=== PATIENT | male | born 1955 | race African-American/Black ===

== ENCOUNTER 2023-06-05 17:10 | Emergency (ER) | payer OTHER ==
--- OUTSIDE RECORDS SUMMARY | 2023-06-05 17:12 | XMS REPORT | Continuity of Care Document ---
:1955 Author Organization [facility] t Address [address] [place] [address] Care Team Providers Name Role Phone Apollo Broussard Primary Care Physician Jolie Tony DO Attending Clinician JOLIE TONY Attending Clinician Unavailable WINDY VALDES Attending Clinician Unavailable Isabela Washington Attending Clinician Unavailable Maria G Bhat Attending Clinician Unavailable WINDY VALDES Admitting Clinician Unavailable Maria G Bhat Admitting Clinician Unavailable UNDEFINED Admitting Clinician Unavailable Payers Payer Name Policy Type Policy Number Effective Date Expiration Date S ource Problems This patient has no known problems. Allergies, Adverse Reactions, Alerts Allergy Allergy Status Severity Reaction(s) Onset Inactive Treating Comm ents Source Name Type Date Date Clinician TRAMADOL DRUG Active ITCHING Univers INGREDI 06-02 ity of 00:00: [place] 00 Medical Branch Tramadol Propensi Active Itching Unive rs ty to 06-02 ity of adverse 00:00: [place] reaction 00 Medical Branch clopidog DA Active SV ITCHING [facility] rel 8-23 [place] 00:00: Health [address] [facility] NO KNOWN Drug Active Univers ALLERGIE Class ity of [facility] Social History Social Habit Start Date Stop Date Quantity Comments Source Gender identity [facility] Sexual orientation [facility] Sex Assigned At [birth year] Uni [facility]ity of [place] 00:00:00 00:00:00 Medical Branch Smoking Status Start Date Stop Date Source Tobacco smoking consumption [facility] Medications Ordered Filled Start Stop Current Ordering Indication Dosage Frequency Signature Comments Components Source Medication Medication Date Date Medication? Clinician (SIG) Name Name ibuprofen 600mg 600 mg, Uni vers (IBU) 06-02 Oral, ity of tablet 600 14:00: 14:10 ONCE, 1 Manan as mg 00 :00 dose, On Medical Sat Branch 06/02/23 at 0900, SARAHY methocarbam 2021-11 Yes [id number] 500mg Take 1 Univers oL 500 mg [id number] tablet by ity of tablet 00:00: mouth 4 [place] 00 (four) Medical times Branch daily as needed for Pain (scale 7-10). Vital Signs Vital Name Observation Time Observation Value Comments Source Systolic blood 2023-06-02 13:49:00 139 mm[Hg[facility] Diastolic blood 2023-06-02 13:49:00 81 mm[Hg] [facility] Heart rate 2023-06-02 13:49:00 52 /min [facility] Body temperature 2023-06-02 13:49:00 36.72 Preeti [facility] Respiratory rate 2023-06-02 13:49:00 16 /min [facility] Body height 2023-06-02 13:49:00 172.7 cm [facility] Body weight 2023-06-02 13:49:00 102.059 kg [facility] BMI 2023-06-02 13:49:00 34.21 kg/m2 [facility] Oxygen saturation in 2023-06-02 13:49:00 98 /min [facility] Arterial blood by [facility] Pulse oximetry Branch Procedures Procedure Date / Time Performed Performing Clinician Kamryn e ASSIGNMENT OF BENEFITS 2023-06-02 14:26:30 Doctor Unassigned, No [facility] Medical Branch CONSENT/REFUSAL FOR 2023-06-02 13:46:14 Doctor Unassigned, No [facility] DIAGNOSIS AND Name Medical Branch TREATMENT [id number] 2022-07-04 00:00:00 [email or web address] [facility] [id number] 2022-07-04 00:00:00 WEAMA.02 [facility] Encounters Start End Encounter Admission Attending Care Care Encounter Source Date/Time Date/Time Type Type Clinicians Facility Department ID 2023-06-02 2023-06-02 Emergency [facility] [id number] Univers 08:51:00 11:25:00 [id number] [id number] [address] 2023-06-02 2023-06-02 Emergency [facility] ERT [id number] Univers 08:51:00 11:25:00 JOLIE [facility] 2022-08-06 2022-08-06 Emergency [facility] [id number] Univers 10:57:00 12:49:00 WINDY [facility] 2022-07-04 2022-07-06 Inpatient SEKOU [place] [facility] MEDI.01 [id number] [facility] 05:50:00 18:59:00 Isabela 03 [facility] 2022-07-04 2022-07-04 Outpatient Maria G Bhat [facility] REF [id number] [facility] 15:19:00 15:19:00 26 [facility] 2022-06-27 2022-06-27 Outpatient Maria G Nation [facility] 3DAY [id number] [facility] 00:00:00 23:59:00 83 [facility] Results Test Description Test Time Test Comments Results Result Comments Source GLUBED 2022-07-11 12:40:00 Test Item Value Reference Range Interpretation Comme nts GLUBED (test code = GLUBED) 147 MG/DL 70-105 H [id number] 15:44:00 Test Item Value Reference Range Interpretation Comments SURGICAL (test code = SR) RUN DATE: 07/07/22 [facility] - LAB PAGE 1 RUN TIME: 1544 Specimen Inquiry RUN USER: INTERFACE YNES ENT: CH[facility] CHRISTIANSON LOC: [facility] POD B U #: [id number] AGE/SX: 67/M ROOM: [facility] RE07/04/22REG DR: Maria G Bhat MD : 53 BED: 1 DIS: 07/06/22 STATUS: DIS IN TLOC: SPEC #: [id number] RECD: 07/04/22 STATUS: SOUT REQ #: [id number] CORTEZ: 07/04/22 [facility] [address]: Maria G Bhat MD ENTERED: 07/04/22 SP TYPE: SURGICAL OTHR DR: Lizz Provider ORDERED: [id number], ANATOMIC SPEC HISTOLOGY: TISSUE ID BLK PCS DHARMESH LEV / PROCEDURE DISPOSITION ____ ___ ___ ___ ___ COLSRT A 25 1 TISSUES: A. 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 - Negative for invasive carcinoma. - Adjacent mural tattoo. - Terminal ileum and appendix with no histopathologic alteration. - Thirty-one reactive lymph nodes; negative for metastatic carcinoma (0/31). - Resection margins are negative for adenomatous changes and malignancy. - AJCC Pathologic Stage: pTis N0. Comment: The clinical definition of CRC excludes lesions with high-grade dysplasia/intramucosal carcinoma where dysplastic/neoplastic changes are solely confined to theepithelium, lamina propria, or muscularis mucosa. Such lesions are classified as "Tis" inthe AJCC staging system and NCCN guidelines. GROSS DESCRIPTION Received in formalin, labeled with the patient's name, date of and designatedspecimen A "right colon and lymph nodes". It consists of a segment of large bowel withattached small bowel. The large bowel measures 23 cm in total length with the attachedsmall bowel measuring 4 cm in total length. The serosa appears kaiser and rough with minoradhesions. The specimen has 15 cm of fatty tissue extending past the serosa. There is atattooed area, located approximately where at the cecum. There is a 1.8 x 1.8 cmtransmural defect. There is an attached appendix measuring 11 cm in total length with anaverage diameter of 0.5 cm. The specimen is opened longitudinally, revealing a friablebrown fungating mass measuring 5 x 3 x 1.5 cm, located 5 cm from the proximal margin, 20 cmfrom distal margin, and 10.5 cm from the mesenteric margin. The large bowel has an averagecircumference of 7.4 cm whearas the small bowel has a circumference average of 4 cm. Thespecimen is sectioned and the mass does not appear invasive. The appendix is revealed tohave a pin point lumen. The uninvolved mucosa shows no additional lesions or masses. Thespecimen is sectioned and submitted representatively as follows: A1 - proximal margin; A2 -distal margin; A3 - mesenteric margin; A4 to A18 - tumor submitted entirely with a sectionfrom the tattooed area in cassette in A10; A19 - ileocecal valve; A20 - appendix; A21 toA24 - six lymph node candidates, each; A25 - eight lymph node candidates. CONTINUED ON NEXT PAGE RUN DATE: 07/07/22 [facility] - LAB PAGE 2 RUN TIME: 1544 Specimen Inquiry RUN USER: INTERFACE SPEC #: [id number] PATIENT: [facility] CHRISTIANSON #[id number] (Continued) ------- GROSS DESCRIPTION (Continued) SULLY/vale Technical component performed at [facility] [facility], [facility], [address] Immunohistochemistry: This test was developed and its performancecharacteristics determined by this laboratory. It has not been approved nordoes it need approval by the [place] FDA. Appropriate positive and negative controlsare reviewed and judged to be acceptable. This laboratory is certified underthe Clinical Laboratory Improvement Amendments (CLIA-88) as qualified toperform high complexity clinical laboratory testing. MICROSCOPIC DESCRIPTION Unless gross only, the diagnosis is based upon microscopic examination. CLINICAL INFORMATION Cecal Mass Signed SIGNATURE ON FILE Jose Luis Maher 07/07/22 1544 END OF REPORT [id number] 17:14:00 Test Item Value Reference Range Interpretation Comments GLUBED (test code = GLUBED) 127 MG/DL 70-105 H [id number] 11:18:00 Test Item Value Reference Range Interpretation Comments GLUBED (test code = GLUBED) 136 MG/DL 70-105 H [id number] 07:31:00 Test Item Value Reference Range Interpretation Comments GLUBED (test code = GLUBED) 106 MG/DL 70-105 H BASIC METABOLIC [id number] 06:35:00 Test Item Value Reference Range Interpretation Comments SODIUM (test code 141 mmol/L 136-145 N Please not e: New = NA) Reference Range Dec 2020 POTASSIUM (test 3.9 mmol/L 3.5-5.1 N code = K) CHLORIDE (test 112 mmol/L 98-107 H Please note: New code = CL) Reference Range Dec 2020 CARBON DIOXIDE 23 mmol/L 20-31 N Please note: New (test code = CO2) Reference Range Dec 2020 GLUCOSE (test code 91 mg/dL 74-106 N Please no te: New = GLU) Reference Range Dec 2020 BLOOD UREA 6 mg/dL 9-23 L Please note: Ne w NITROGEN (test Reference Ran ge Feb code = BUN) 2020 GLOMERULAR >=60 max >60 Units are FILTRATION RATE estimate mL/min mL/min/1. 73m2 The (test code = GFR) estimated glomerular filtration rate is computed usingpatient ra ce, age (>18), sex, and serum creatinin e. If anyof the neede d data elements a re missing the Laboratory juventino ot compute an estimation of t he glomerular filtration rate . CREATININE (test 0.80 mg/dL 0.70-1.30 N Please note : New code = CREAT) Reference Rang e Dec 2020 CALCIUM (test code 8.2 mg/dL 8.7-10.4 L Please no te: New = CA) Reference Range Dec 2020 [id number] 06:35:00 Test Item Value Reference Range Interpretation Comments MAGNESIUM (test code = 2.1 mg/dL 1.6-2.6 N Pleas e note: New MAG) Reference Range Dec 2020 CBC W/MANUAL [id number] 06:25:00 Test Item Value Reference Range Interpretation Comments WHITE BLOOD CELL (test code = 6.0 x10 3/uL 4.8-10.8 N WBC) RED BLOOD CELL (test code = 4.53 x10 6/uL 4.70-6.10 L RBC) HEMOGLOBIN (test code = HGB) 11.0 g/dL 14.0-18.0 L HEMATOCRIT (test code = HCT) 33.4 % 42.0-52.0 L MEAN CELL VOLUME (test code = 73.7 fL 80.0-94.0 L MCV) MEAN CELL HGB (test code = MCH) 24.3 pg 27-31 L MEAN CELL HGB CONCENTRATION 32.9 G/DL 33-36.5 L (test code = MCHC) RED CELL DISTRIBUTION WIDTH 16.2 % 12.9-16.9 N (test code = RDW) PLATELET COUNT (test code = 187 x10 3/uL 150-440 N PLT) MEAN PLATELET VOLUME (test code 9.0 fL 8.9-12.4 N = MPV) NEUTROPHIL % (test code = NT%) 59.7 % 42.2-75.2 N LYMPHOCYTE % (test code = LY%) 26.7 % 20.5-51.1 N MONOCYTE % (test code = MO%) 11.4 % 1.7-9.3 H EOSINOPHIL % (test code = EO%) 1.7 % 0.0-7.0 N BASOPHIL % (test code = BA%) 0.3 % 0-2.5 N NEUTROPHIL # (test code = NT#) 3.55 x10 3/uL 1.80-7.70 N LYMPHOCYTE # (test code = LY#) 1.59 x10 3/uL 1.00-4.80 N MONOCYTE # (test code = MO#) 0.68 x10 3/uL 0.00-0.80 N EOSINOPHIL # (test code = EO#) 0.10 x10 3/uL 0.00-0.45 N BASOPHIL # (test code = BA#) 0.02 x10 3/uL 0.0-0.20 N TOTAL CELLS COUNTED (test code 100 #CELLS = TCC) SEGMENTED NEUTROPHILS (test % 49-71 code = SEG) LYMPHOCYTE (test code = LYMPH) % 20-40 [id number] 16:29:00 Test Item Value Reference Range Interpretation Comments GLUBED (test code = GLUBED) 140 MG/DL 70-105 H [id number] 11:29:00 Test Item Value Reference Range Interpretation Comments GLUBED (test code = GLUBED) 110 MG/DL 70-105 H [id number] 07:24:00 Test Item Value Reference Range Interpretation Comments GLUBED (test code = GLUBED) 133 MG/DL 70-105 H BASIC METABOLIC [id number] 05:04:00 Test Item Value Reference Range Interpretation Comments SODIUM (test code 139 mmol/L 136-145 N Please not e: New = NA) Reference Range Dec 2020 POTASSIUM (test 4.0 mmol/L 3.5-5.1 N code = K) CHLORIDE (test 110 mmol/L 98-107 H Please note: New code = CL) Reference Range Dec 2020 CARBON DIOXIDE 23 mmol/L 20-31 N Please note: New (test code = CO2) Reference Range Dec 2020 GLUCOSE (test code 133 mg/dL 74-106 H Please no te: New = GLU) Reference Range Dec 2020 BLOOD UREA 11 mg/dL 9-23 N Please note: Ne w NITROGEN (test Reference Ran ge Feb code = BUN) 2020 GLOMERULAR >=60 max >60 Units are FILTRATION RATE estimate mL/min mL/min/1. 73m2 The (test code = GFR) estimated glomerular filtration rate is computed usingpatient ra ce, age (>18), sex, and serum creatinin e. If anyof the neede d data elements a re missing the Laboratory juventino ot compute an estimation of t he glomerular filtration rate . CREATININE (test 0.80 mg/dL 0.70-1.30 N Please note : New code = CREAT) Reference Rang e Dec 2020 CALCIUM (test code 7.8 mg/dL 8.7-10.4 L Please no te: New = CA) Reference Range Dec 2020 [id number] 05:04:00 Test Item Value Reference Range Interpretation Comments MAGNESIUM (test code = 1.4 mg/dL 1.6-2.6 L Pleas e note: New MAG) Reference Range Dec 2020 CBC W/AUTO [id number] 04:41:00 Test Item Value Reference Range Interpretation Comments WHITE BLOOD CELL (test code = 6.4 x10 3/uL 4.8-10.8 N WBC) RED BLOOD CELL (test code = 4.47 x10 6/uL 4.70-6.10 L RBC) HEMOGLOBIN (test code = HGB) 10.9 g/dL 14.0-18.0 L HEMATOCRIT (test code = HCT) 32.7 % 42.0-52.0 L MEAN CELL VOLUME (test code = 73.2 fL 80.0-94.0 L MCV) MEAN CELL HGB (test code = MCH) 24.4 pg 27-31 L MEAN CELL HGB CONCENTRATION 33.3 G/DL 33-36.5 N (test code = MCHC) RED CELL DISTRIBUTION WIDTH 16.0 % 12.9-16.9 N (test code = RDW) PLATELET COUNT (test code = 197 x10 3/uL 150-440 N PLT) MEAN PLATELET VOLUME (test code 9.1 fL 8.9-12.4 N = MPV) NEUTROPHIL % (test code = NT%) 69.6 % 42.2-75.2 N LYMPHOCYTE % (test code = LY%) 19.3 % 20.5-51.1 L MONOCYTE % (test code = MO%) 10.5 % 1.7-9.3 H EOSINOPHIL % (test code = EO%) 0.0 % 0.0-7.0 N BASOPHIL % (test code = BA%) 0.3 % 0-2.5 N NEUTROPHIL # (test code = NT#) 4.43 x10 3/uL 1.80-7.70 N LYMPHOCYTE # (test code = LY#) 1.23 x10 3/uL 1.00-4.80 N MONOCYTE # (test code = MO#) 0.67 x10 3/uL 0.00-0.80 N EOSINOPHIL # (test code = EO#) 0.00 x10 3/uL 0.00-0.45 N BASOPHIL # (test code = BA#) 0.02 x10 3/uL 0.0-0.20 N [id number] 17:39:00 Test Item Value Reference Range Interpretation Comments GLUBED (test code = GLUBED) 151 MG/DL 70-105 H [id number] 16:25:00 Test Item Value Reference Range Interpretation Comments GLUBED (test code = GLUBED) 139 MG/DL 70-105 H [id number] 13:58:00 Test Item Value Reference Range Interpretation Comments GLUBED (test code = GLUBED) 146 MG/DL 70-105 H PROTHROMBIN [id number] 07:52:00 Test Item Value Reference Range Interpretation Comments PROTHROMBIN TIME 11.6 SECONDS 10.3-12.9 N PATIENT (test code = PTP) INTERNATIONAL 1.02 INR UNIT 0.9-1.11 N The INR is us eful only NORMAL RATIO (test for monit oring code = INR) anticoagulant therapy.It may be unreliable in t he initial phase o f antigoagulation and in unstable patien ts. Indication for Anticoagulation Recommended INR 1. Prevention of v enous thomboembolism 2.0-3.0in high- risk patients; treat ment of venousthrombosi s and pulmonary embol ism aftera course o f heparin; preven tion of systemicembolis m in a variety of cond itions, including atria l fibrillation an d prothetic tissu e heart valves, 2. Pros thetic mechanical hear t valves; 2.5-3.5recurren t systemic emboli sm. THROMBOPLASTIN TIME [id number] 07:52:00 Test Item Value Reference Range Interpretation Comments THROMBOPLASTIN TIME 20.7 SECONDS 23.8-34.8 L INTERPRE TATIVE PARTIAL (test code = DATA:Th erapeutic PTT) range: Unfractionated heparin:55 - 80 seconds Argatroban:1.5 to 3 times the basel ine PTT [id number] 07:28:00 Test Item Value Reference Range Interpretation Comments GLUBED (test code = GLUBED) 83 MG/DL 70-105 N COMPREHENSIVE METABOLIC [id number] 13:19:00 Test Item Value Reference Range Interpretation Comments SODIUM (test code = 141 mmol/L 136-145 N Please n ote: New NA) Reference Range Dec 2020 POTASSIUM (test 4.4 mmol/L 3.5-5.1 N code = K) CHLORIDE (test code 111 mmol/L 98-107 H Please n ote: New = CL) Reference Range Dec 2020 CARBON DIOXIDE 24 mmol/L 20-31 N Please note: New (test code = CO2) Reference Range Dec 2020 GLUCOSE (test code 70 mg/dL 74-106 L Please no te: New = GLU) Reference Range Dec 2020 BLOOD UREA NITROGEN 11 mg/dL 9-23 N Please n ote: New (test code = BUN) Reference Range Dec 2020 GLOMERULAR >=60 max >60 Units are FILTRATION RATE estimate mL/min mL/min/1. 73m2 The (test code = GFR) estimated glomerular filtration rate is computed usingpatient ra ce, age (>18), sex, and serum creatinin e. If anyof the ne eded data elements a re missing the Laboratory juventino ot compute an estimation of t he glomerular filtration rate . CREATININE (test 0.90 mg/dL 0.70-1.30 N Please note : New code = CREAT) Reference Rang e Dec 2020 TOTAL PROTEIN (test 6.3 g/dL 5.7-8.2 N Please n ote: New code = PROT) Reference Range Dec 2020 ALBUMIN (test code 4.1 g/dL 3.2-4.8 N Please no te: New = ALB) Reference Range Dec 2020 CALCIUM (test code 8.4 mg/dL 8.7-10.4 L Please no te: New = CA) Reference Range Dec 2020 BILIRUBIN TOTAL 0.4 mg/dL 0.3-1.2 N Please note: New (test code = BILT) Reference Range Dec 2020 SGOT/AST (test code 18 U/L <34 N Please n ote: New = AST) Reference Range Dec 2020 SGPT/ALT (test code 16 U/L 10-49 N Please n ote: New = ALT) Reference Range Dec 2020 ALKALINE 60 U/L 46-116 N Please note: Ne w PHOSPHATASE (test Reference Range Feb code = ALKP) 2020 AG [id number] 13:18:00 Test Item Value Reference Range Interpretation Comments AG CARCINOEMBRYONIC (test 0.96 ng/mL 0.0-3.[address] ease note: New code = CEA) Reference Range Dec 2020 PROTHROMBIN [id number] 12:50:00 Test Item Value Reference Range Interpretation Comments PROTHROMBIN TIME 24.5 SECONDS 10.3-12.9 H PATIENT (test code = PTP) INTERNATIONAL 2.13 INR UNIT 0.9-1.11 H The INR is us eful only NORMAL RATIO (test for monit oring code = INR) anticoagulant therapy.It may be unreliable in t he initial phase o f antigoagulation and in unstable patien ts. Indication for Anticoagulation Recommended INR 1. Prevention of v enous thomboembolism 2.0-3.0in high- risk patients; treat ment of venousthrombosi s and pulmonary embol ism aftera course o f heparin; preven tion of systemicembolis m in a variety of cond itions, including atria l fibrillation an d prothetic tissu e heart valves, 2. Pros thetic mechanical hear t valves; 2.5-3.5recurren t systemic emboli sm. THROMBOPLASTIN TIME [id number] 12:50:00 Test Item Value Reference Range Interpretation Comments THROMBOPLASTIN TIME 37.0 SECONDS 23.8-34.8 H INTERPRE TATIVE PARTIAL (test code = DATA:Th erapeutic PTT) range: Unfractionated heparin:55 - 80 seconds Argatroban:1.5 to 3 times the basel ine PTT CBC W/AUTO [id number] 12:32:00 Test Item Value Reference Range Interpretation Comments WHITE BLOOD CELL (test code = 4.7 x10 3/uL 4.8-10.8 L WBC) RED BLOOD CELL (test code = 5.19 x10 6/uL 4.70-6.10 N RBC) HEMOGLOBIN (test code = HGB) 12.5 g/dL 14.0-18.0 L HEMATOCRIT (test code = HCT) 38.6 % 42.0-52.0 L MEAN CELL VOLUME (test code = 74.4 fL 80.0-94.0 L MCV) MEAN CELL HGB (test code = MCH) 24.1 pg 27-31 L MEAN CELL HGB CONCENTRATION 32.4 G/DL 33-36.5 L (test code = MCHC) RED CELL DISTRIBUTION WIDTH 16.5 % 12.9-16.9 N (test code = RDW) PLATELET COUNT (test code = 209 x10 3/uL 150-440 N PLT) MEAN PLATELET VOLUME (test code 9.4 fL 8.9-12.4 N = MPV) NEUTROPHIL % (test code = NT%) 39.8 % 42.2-75.2 L LYMPHOCYTE % (test code = LY%) 45.0 % 20.5-51.1 N MONOCYTE % (test code = MO%) 11.0 % 1.7-9.3 H EOSINOPHIL % (test code = EO%) 3.2 % 0.0-7.0 N BASOPHIL % (test code = BA%) 0.8 % 0-2.5 N NEUTROPHIL # (test code = NT#) 1.87 x10 3/uL 1.80-7.70 N LYMPHOCYTE # (test code = LY#) 2.12 x10 3/uL 1.00-4.80 N MONOCYTE # (test code = MO#) 0.52 x10 3/uL 0.00-0.80 N EOSINOPHIL # (test code = EO#) 0.15 x10 3/uL 0.00-0.45 N BASOPHIL # (test code = BA#) 0.04 x10 3/uL 0.0-0.20 N Notes Date/Time Note Provider Source 2023-06-02 Formatting of this note might be differe nt from the original. Shobha Bee RN [facility] 11:25:00-00:00 Pt given printed and verbal discharge instructions regarding acute pain of right shoulder, encouraged hydration. 0 Prescriptions provided Discussed ibuprofen and to take with food to [place] id GI distress. Pt verbalized understanding of instructions, pt awake alert oriented, resp reg unlabored, skin w/d, color appropriate for race, moves all ext well,pt encouraged to follow up with pcp. Advised to seek medical attention for new/prolon ged/worsening of symptoms, Symptoms improved No adverse reaction to meds given in ER noted up on discharge Awake, alert oriented, resp reg unlabored, skin w/d, pt leaving amb with steady gait, in no apparent distress. 2023-06-02 [facility] 08:49:01-00:00 Left shoulder pain x3 days. Denies injury. Took tylenol an hour ago. Electronically signed by Nani Mcgovern RN at 8:50 AM CDT 2023-06-02 Formatting of this note is different from the or iginal. [facility] 08:45:00-00:00 [facility] Emergency Department Note Patient Name: Cha Christianson Date of : 1955 68 year old male Treatment Room: [place] [address] Primary Care Physician: Apollo Broussard Patient Escorted by: Self [9] Mode of Arrival: Personal means [1] EMS Treatment Prior to ED Arrival: Travel and Exposure Screening: Symptoms Does patient have any of these symptoms?: (not r ecorded) Exposure Screening Has patient had contact with someone with a communicable disease in the last month?: (not recorded) Diseases exposed to:: (not recorded) Is Patient ?: (not recorded) Exposure Date: (not recorded) Chief Complaint: Chief Complaint Patient presents with Shoulder Pain History of Present Illness: The patient presents from [facility] for evaluation for right shoulder pain for the past 2 or 3 days. He is right-handed. He denies any injury or trauma. He has tried some Tylenol at home with minimal help. N o neck pain. No chest pain o r shortness of breath. He does feel like his right hand is weaker than normal. He has a history of high blood pressure and diabetes. Here for evaluation. Past Medical History/Immunizations: Past Medical History: Diagnosis Date HTN (hypertension) Prostate cancer Type 2 diabetes mellitus Tetanus received in last 5 years: Unknown Allergies: Allergies Allergen Reactions Tramadol Itching Past Social History: Substance & Sexual Activity No substance use or sexual activity history on file. Past Surgical History: Past Surgical History: Procedure Laterality Date HIP HEMIARTHROPLASTY Right LAPAROSCOPIC APPENDECTOMY Review of Systems: Review of Systems Constitutional: Negative for chills and fever. Respiratory: Negative for cough and shortness of breath. Cardiovascular: Negative for chest pain. Gastrointestinal: Negative for abdominal distent ion, nausea and vomiting. Genitourinary: Negative for dysuria. Musculoskeletal: Positive fo r arthralgias. Negative for neck pain and neck stiffness. Skin: Negative for wound. Neurological: Negative for dizziness. Psychiatric/Behavioral: Negative for agitation. Endocrine: Negative for goiter. Physical Exam: ED Triage Vitals [06/02/23 0849] Weight 102.1 kg (225 lb) Actual or estimated Estimated by patient/family report Height 1.727 m (5' 8") BP 139/81 Pulse 52 Resp 16 Temp 36.7 ?C (98.1 ?F) Temp source Oral SpO2 98 % Measured on Room air Physical Exam Vitals and nursing note reviewed. Constitutional: Appearance: Normal appearance. HENT: Head: Normocephalic and atraumatic. Cardiovascular: Rate and Rhythm: Normal rate and regular rhythm . Pulses: Normal pulses. Pulmonary: Effort: Pulmonary effort is normal. No respirat ory distress. Breath sounds: No stridor. No wheezing or rhonc hi. Abdominal: General: There is no distension. Palpations: There is no mass. Tenderness: There is no abdominal tenderness. T here is no guarding. Hernia: No hernia is present. Musculoskeletal: General: Normal range of motion. Cervical back: Normal range of motion and neck supple. Comments: Full range of motion of right shoulde r. No deformity or tenderness about the right shoul ty. Handgrip right equals left. Muscle strength 5/5 to upper extremities bilater ally. Skin: General: Skin is warm and dry. Neurological: General: No focal deficit present. Mental Status: He is alert and oriented to pers on, place, and time. Radiology: No orders to display Lab Results: Lab Results - No data to display EKG: If EKG completed, see Procedure Note. Orders and Treatments: Orders Placed This Encounter Procedures XR SHOULDER 2+ VW RIGHT Orders Placed This Encounter Medications ibuprofen (IBU) tablet 600 mg First Provider Eval: ED Events Date/Time Event User Comments 06/02/23846 Medical Screening Begins JOLIE TONY DO -- 06/02/23 08 First Provider Evaluation JOLIE KOO DO -- ED COURSE Diagnosis/Impression as of 06/02/23 1112 Acute pain of right shoulder Procedures: Procedures MDM: Medical Decision Making The patient presents from [facility] for evaluation for right shoulder pain for the past 2 or 3 days. He denies any injury or trauma. He is right-handed. No neck pain. No chest pain or shortness of breath. No change in the pain with exe rtion. He states moving his right shoulder does make the pain worse. He tried some Tylenol earlier this morning with minimal help. Vital signs are stable in the ER. He has full range of motion of his right shoulde r without difficulty. There is no deformity or tenderness noted about the right shoulder. Handgrip right equals left. Muscle strength is 5/5 to upper extremities bila terally. We will obtain an x-ray to evaluate for any poss ible osseous injuries. We will provide the patient with pain medication here in the ER. Anticipate discharge home later. 1112 -the patient is doing well here in the ER. No acute osseous injuries are seen on the x-ray upon my review. He is pending the final read by radiology however would like to be discharged home. We will give the patient a sling to wear for com fort. Recommend he follow-up with his PCP in 1 week. Problems Addressed: Acute pain of right shoulder: acute illness or i njury Amount and/or Complexity of Data Reviewed Radiology: ordered and indep endent interpretation performed. Decision-making details documented in ED Course. Risk OTC drugs. Prescription drug management. Flowsheet Documentation: Scoring Tools: No data recorded Disposition/Condition: ED Disposition ED Disposition Disch - Home Condition Stable Comment -- Discharge Medications: Patient's Medications START taking these medications No medications on file CONTINUE taking these medications which have NOT CHANGED METHOCARBAMOL 500 MG TABLET Take 1 tablet by mouth 4 (four) times daily as needed for Pain (scale 7-10). START taking Modified Medications as Prescribed No medications on file STOP taking these medications No medications on file Follow-up: Electronically signed by: Jolie Tony DO 06/02/23 1112 2022-07-13 [id number] [facility] 15:34:00-00:00 [address] [place] [address] PATIENT NAME: CHA CHRISTIANSON ADMIT DATE: 07/04/22 ACCOUNT NO: [id number] ROOM NO: [id number] AGE: 67 REPORT TYPE: 360 - QUERY RESPONSE DOCUMENT SEX: M ADMITTING PHYSICIAN:Maria G Bhat MD ATTENDING PHYSICIAN:Maria G Bhat MD Provider Query QUERY TEXT: Clarification Pathology 360MD Query related questions should be directed to: Елена wiley [facility] Coding Query Helpline Based on your clinical judgment, can you confirm the diagnosis that represents the pathology finding (s) of 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 Reporting of pathology findings require confirma tion by the attending physician and/or surgeon. 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 Query created by: Laura Suarez on 022 8:54 AM at 1534 PATIENT NAME: CHA CHRISTIANSON ACCOUN T #: [id number] 2022-07-06 [facility] 19:19:00-00:00 [facility] ([facility] colorectal surgery prog note report#:[id number] report status: signed date:07/06/22 time: 1918 patient: cha christianson unit #: [id number] room: [facility] bed: 1 : 54 age: 67 sex: m attend: maria g bhat md adm dt: 07/04/22 author: karmen sun v, md * all edits or amendments must be made on the [employer]/computer document * general date of surgery: 07/04/22 status post: right colectomy subjective patient reports: yes: bowel movement, flatus. no: nausea, vomitin g. objective general vs/i o: last documented: result date time pulse ox 96 07/06 1529 b/p 134/77 07/06 1529 b/p mean 96.0 07/06 1529 o2 delivery room air 07/06 1529 temp 37.1 07/06 1529 pulse 67 07/06 1529 resp 20 07/06 1529 o2 flow rate 2 07/04 2000 24 hour i o ending at 0700: 07/05 1900 07/06 0700 intake total 1184 1480.00 output total 1400 balance -216 1480.00 intake, iv 480.00 intake, oral 1184 1000 number voids 2 output, urine 1400 patient weight: weight (lb): 230 weight (oz): 13.18 weight (kg): 104.700 physical exam wound/incision: location: incisions are clean, dry, and intact. cardiovascular: normal heart sounds, normal s1/s 2, regular rate and rhythm respiratory: aerating well, clear to auscultatio n, equal breath sounds, symmetric expansion abdomen: tenderness (appropriately tender to pal pat), soft, no distention genitourinary - male: no urinary catheter extremities: moves all, normal capillary refill, normal temperature neuro/player manager: alert, oriented x 3, cnii-xii intact, normal speech skin: dry, intact, normal color, normal temperat ure current medications medications: active meds + dc'd last 24 hrs enoxaparin sodium (lovenox) 40 mg daily subq (dc d) acetaminophen (tylenol regular) 650 mg q6hr po ( dcd) pravastatin sodium (pravastatin sodium) 40 mg be dtime po (dcd) ketorolac tromethamine (toradol) 15 mg q6hr iv ( dcd) carvedilol (coreg) 6.25 mg bid meals po (dcd) insulin human lispro (humalog) 0 units ac hs subq (dcd) albuterol/ipratropium (duoneb 2.5-0.5mg/3 ml) 3 ml rtq4h prn prn neb ( dcd) dextrose/water (dextrose 50% syr) 25 ml asdir pr n prn iv (dcd) glucagon (glucagon) 1 mg asdir prn prn im (dcd) hydralazine hcl (apresoline) 5 mg q2h prn prn iv (dcd) melatonin (melatonin) 3 mg bedtime prn prn po (d cd) nicotine (nicoderm, habitrol) 14 mg daily topica l (dcd) ondansetron base (zofran odt) 4 mg q6h prn prn p o (dcd) tramadol hcl (ultram) 50 mg q6h prn prn po (dcd ) dextrose/sodium chloride (d5%w 0.45%ns) 1,000 ml .q24h iv (dcd) results findings/data: laboratory tests 07/06/22228: [embedded image not available] laboratory tests 07/06 0721 1106 1702 chemistry sodium (136 - 145 mmol/l) 141 potassium (3.5 - 5.1 mmol/l) 3.9 chloride (98 - 107 mmol/l) 112 h carbon dioxide (20 - 31 mmol/l) 23 bun (9 - 23 mg/dl) 6 l creatinine (0.70 - 1.30 mg/dl) 0.80 glomerular filtr rate (>60 ml/min) >=60 max est imate glucose (74 - 106 mg/dl) 91 poc glucose (70 - 105 mg/dl) 106 h 136 h 127 h calcium (8.7 - 10.4 mg/dl) 8.2 l magnesium (1.6 - 2.6 mg/dl) 2.1 laboratory tests 07/06 229 hematology wbc (4.8 - 10.8 x10 3/ul) 6.0 rbc (4.70 - 6.10 x10 6/ul) 4.53 l hgb (14.0 - 18.0 g/dl) 11.0 l hct (42.0 - 52.0 %) 33.4 l mcv (80.0 - 94.0 fl) 73.7 l mch (27 - 31 pg) 24.3 l mchc (33 - 36.5 g/dl) 32.9 l rdw (12.9 - 16.9 %) 16.2 plt count (150 - 440 x10 3/ul) 187 mpv (8.9 - 12.4 fl) 9.0 neut % (auto) (42.2 - 75.2 %) 59.7 lymph % (auto) (20.5 - 51.1 %) 26.7 mono % (auto) (1.7 - 9.3 %) 11.4 h eos % (auto) (0.0 - 7.0 %) 1.7 baso % (auto) (0 - 2.5 %) 0.3 neut # (auto) (1.80 - 7.70 x10 3/ul) 3.55 lymph # (auto) (1.00 - 4.80 x10 3/ul) 1.59 mono # (auto) (0.00 - 0.80 x10 3/ul) 0.68 eos # (auto) (0.00 - 0.45 x10 3/ul) 0.10 baso # (auto) (0.0 - 0.20 x10 3/ul) 0.02 total counted (#cells) 100 diagnosis, assessment plan free text a p: 67 yo male pod2 s/p right colectomy, recovering appropriately. patient has tolerated soft food throughout the day. he can b e discharged home. 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 jose de jesus lamar); patient will resume his home warfarin and will follo w up with dr. yeboah in 2 weeks to further discuss his anticoagulation. patient will also follow up in outpatient [facility]. electronically signed by karmen sun v, md on at 1922 rpt #:[id number] end of report 2022-07-06 [facility] 17:29:00-00:00 [facility] report #: [id number] report status: signed date: 07/06/22 time: 1728 patient: cha christianson unit #: [id number] room #: 0572 bed: 1 : 54 age: 67 sex: m attend: maria g bhat md adm dt: 07/04/22 author: leni tony aprn attention *edits and/or addenda must be made in patient ke eper for this note. * * edits and ammendments created in [facility] are not visible * * in patient keeper or the legal medical record (hpf). * discharge medication reconciliation discharge medication list carvedilol tab (coreg tab) dose: 6.25 mg po bid meals glimepiride (generic amaryl) tab (glimepiride) dose: 2 mg po c bk metformin tab (glucophage tab) dose: 1000 mg po bid pravastatin tab (pravachol tab) dose: 40 mg po daily warfarin tab (coumadin tab) dose: 10 mg po daily tramadol tab (ultram tab) dose: 50mg po q6h prn pain scale 4-6, disp: 24 tablet, refills: 0 stopped hospital medications dc'd: acetaminophen tab (tylenol tab) 650mg po q 6hrdc'd: albuterol/ipratrop neb soln (duoneb neb soln) 3ml neb rtq4h prn whe ezing / shortness of breathdc'd: d5w-1/2ns 1000ml (d5w-1/2ns 1000ml) 1000ml 40 mls/hr iv dc'd: dextrose 50% 50 ml syringe (d50w 50 ml syringe) 25ml iv asdir prn hypoglycemiadc'd: enoxaparin 40 mg/0.4 ml inj (l ovenox 40 mg/0.4 ml inj) 40mg subq dailydc'd: glucagon inj (glucagon inj) 1mg im asdir prn hypoglycemia if no iv/enteraldc'd: hydralazine inj (apresoline i nj) 5mg iv q2h prn sbp greater than 160dc'd: insulin (lispro) inj (vineet log inj) 0 units subq ac hsdc'd: ketorolac inj (toradol inj) 15mg iv q6hr dc'd: melatonin 3mg po bedtime prn insomniadc'd: nicotine patch 14mg/24 hr (nicoderm cq patch 14mg/24hr) 14mg topical dailydc'd: ondansetron o dt tab (zofran odt tab) 4mg po q6h prn nausea and vomitingelectronically sig johnny in patientkeeper by leni tony on 07/06/22 17:26 electronically signed by leni tony on 07/06/22 at 1729 attention *edits and/or addenda must be made in patient ke eper for this note. * * edits and ammendments created in [facility] are not visible * * in patient keeper or the legal medical record (hpf). * rpt #: [id number] end of report 2022-07-06 [facility] 09:37:00-00:00 [facility] ([facility]) internal med. d/c summary report #: [id number] report status: signed date: 07/06/22 time: 936 patient: cha christiansno unit #: [id number] room #: [facility] bed: 1 : 54 age: 67 sex: m attend: maria g bhat md adm dt: 07/04/22 author: leni tony aprn attention *edits and/or addenda must be made in patient ke eper for this note. * * edits and ammendments created in [employer] are not visible * * in patient keeper or the legal medical record (hpf). * -- co-signature -- comments: patient seen and examined doing well pod 2 plan of care discussed with patient, all questions answered to his satisfaction agree with the findings as detailed by leni sarabia aprn discussed with crs, ok for discharge plans upon discharge are enumerated below total time spent coordinating care > 35 mins signed in patientkeeper by aris salmeron md n 07/07/22 at 22:42 -- problems/procedures -- admission date: 07/04/22 admitting diagnoses: - cecum mass - diabetes mellitus - history of pulmonary embolism - hyperlipidemia - hypertension - hypomagnesemia - tobacco use discharge date: 07/06/22 discharge diagnoses: - cecum mass - diabetes mellitus - history of pulmonary embolism - hyperlipidemia - hypertension - hypomagnesemia - tobacco use -- hospital course -- hospital course: patient is a 67 year old man with history of pro voked pulmonary embolism 10 years ago on warfarin, smoker, diabetes, hyperte nsion, hyperlipidemia, diverticulosis, and cecal mass who underwent kaya otic assisted laparoscopic right colectomy by dr. washington. patient had an un complicated postoperative course. doing well pod#2. patient is ambulating independently, and pain is controlled with oral analgesics. bowel function has returned, and patient is tolerating a soft diet. disc ussed with dr. washington. ok for discharge. patient to resume anticoagulaton with warfarin given histor y of pulmonary embolism. patient to follow up as outpatient with his card iologist. -- discharge medications -- allergies: clopidogrel (severe - allergy) discharge medications: please refer to discharge medication list for a complete list of discharge medications carvedilol tab (coreg tab) 6.25 mg po bid meals glimepiride (generic amaryl) tab (glimepiride) 2 mg po c bk metformin tab (glucophage tab) 1000 mg po bid pravastatin tab (pravachol tab) 40 mg po daily tramadol tab (ultram tab) 50mg po q6h prn pain s daniel 4-6, disp: 24 tablet, refills: 0 warfarin tab (coumadin tab) 10 mg po daily -- discharge instructions -- admission orders: discharge follow up details: consulting provider 1:: maria g bhat md consulting provider 1:: . consult phone:: [phone] consult follow up timeframe:: in 1-2 weeks consult special instructions:: patient to call f or follow up appointment. 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 notify pcp of signs/symptoms :: moderate/large bleeding, pus-like discharge, red line from wound, temp. 101 or greater wound/dressing care:: keep wound clean and dry details: dc order - no ecqm addtional discharge instructions: emergency instructions: the patient was instruct ed to present to the nearest emergency department or call 911 should their sy mptoms return or worsen.; -- objective -- vitals (07/05 09:37 - 07/06 09:37): temperature c: 37.2 (36.6 - 37.5) temperature source: oral pulse rate 70 (57 - 70) respiratory rate: 20 (14 - 20) bp: 148/81 (112/71 - 148/81) i/os (07/05 07:00 - 07/06 07:00): net 1,264.00 intake 2,664.00 output 1,400 -exam- general: alert and cooperative, appears comforta ble. in no distress. obese head: normocephalic, atraumatic. eyes: perrl, eom intact, conjunctiva and sclera clear, without nystagmus, lids normal. ears: normal canals, grossly normal hearing. nose: no deformity, no discharge, no inflammatio n, no lesions. mouth: oropharynx without deformities or lesions , normal mucosa. neck: no masses, no thyromegaly, no abnormal cer vical nodes, trachea midline. chest: grossly normal appearance. breast: deferred lungs: clear bilaterally with normal respiratory effort. heart: regular rate and rhythm, normal s1, s2, n o murmurs, no rubs, no gallops, no clicks. abdomen: soft, minimally tender, incisions clean and dry. musculoskeletal: no deformity, no scoliosis note d of thoracic or lumbar spine, joint rom grossly normal, normal gait a nd station. extremities: no clubbing, no cyanosis, no edema. neurological: no focal deficits, cranial nerves ii-xii grossly intact, normal sensation, normal coordination, normal m uscle strength, normal tone. pulses: pulses normal in all extremities. rectal: deferred genitourinary: deferred skin: intact without significant lesions, or irene hes. lymph nodes: no significant node adenopathy. psychiatric: alert and oriented to time, person, place. normal mood and affect, intact judgment and insight. -- data -- labs glu bed (07/06/22 07:21) glubed 106 h cbc w/manual diff (07/06/22 02:29) white blood cell 6.0 red blood cell 4.53 l hemoglobin 11.0l l hematocrit 33.4l l mean cell volume 73.7 l mean cell hgb 24.3 l mean cell hgb concentration 32.9 l red cell distribution width 16.2 platelet count 187 mean platelet volume 9.0 neutrophil % 59.7 lymphocyte % 26.7 monocyte % 11.4 h eosinophil % 1.7 basophil % 0.3 neutrophil # 3.55 lymphocyte # 1.59 monocyte # 0.68 eosinophil # 0.10 basophil # 0.02 total cells counted 100 basic metabolic panel (07/06/22 02:29) sodium 141 potassium 3.9 chloride 112h h carbon dioxide 23 glucose 91 blood urea nitrogen 6l l glomerular filtration rate >=60 max estimate creatinine 0.80 calcium 8.2 l mag (07/06/22 02:29) magnesium 2.1 glu bed (07/05/22 16:19) glubed 140 h glu bed (07/05/22 11:18) glubed 110 h signed in patientkeeper by leni tony aprn 07/06/22 at 17:27 cosigned by aris salmeron md on 07/07/22 at 2 2:42 electronically signed by leni tony on 0 07/07/22 at 2242 electronically signed by aris salmeron md on 07/07/22 at 2242 attention *edits and/or addenda must be made in patient ke eper for this note. * * edits and ammendments created in [facility] are not visible * * in patient keeper or the legal medical record (hpf). * [facility] #: [id number] end of report 2022-07-05 [facility] 10:16:00-00:00 [facility] ([facility]) internal med. progress note report #: [id number] report status: signed date: 07/05/22 time: 1016 patient: ramonsosakarlamarcus eugene unit #: [id number] room #: [facility] bed: 1 : 54 age: 67 sex: m attend: maria g bhat md adm dt: 07/04/22 author: leni tony aprn attention *edits and/or addenda must be made in patient ke eper for this note. * * edits and ammendments created in [facility] not visible * * in patient keeper or the legal medical record (hpf). * -- co-signature -- comments: patient seen and examined at bedside pod 1 awaiting bowel function plan of care discussed with patient, all questions answered to his satisfaction agree with the findings as detailed by leni sarabia aprn plans for the acute medical problems are enumera lanny below total time spent coordinating care > 35 mins signed in patientkeeper by aris salmeron md o n 07/05/22 at 17:33 -- assessment and plan -- problems: 1: cecum mass a/p: s/p robotic assisted laparoscopic right col ectomy continue postoperative care per dr. washington pain control - scheduled potylenol and iv torado l. tramadol prn clear liquid diet until flatus continue iv hydration until tolerating oral inta ke well. 2: hypertension a/p: continue home carvedilol 6.25 mg bid, felod ipine 10 mg daily hydralazine 5 mg q2h iv prn sbp > 160 mmhg 3: hyperlipidemia a/p: continue pravastatin 40 mg hs 4: diabetes mellitus a/p: hold home glimepiride 2 mg daily and metfor min 1000 mg bid for now. accuchecks achs ssi 5: tobacco use a/p: cessation advised nicotine patch 6: history of pulmonary embolism a/p: provoked. 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 7: hypomagnesemia a/p: replete mag sulfate 2 gm iv x 1 8: dvt prophylaxis a/p: lovenox/ambulate -- subjective -- patient narrative: doing well pod#1 pain is controlled ambulating tolerating clear liquids no flatus yet. -- objective -- vitals (07/04 10:16 - 07/05 10:16): temperature c: 37.1 (36.3 - 37.3) temperature source: oral pulse rate 62 (60 - 73) respiratory rate: 14 (14 - 18) bp: 132/74 (122/67 - 136/80) i/os (07/04 07:00 - 07/05 07:00): net 460.00 intake 1,510.00 output 1,050 -exam- general: alert and cooperative, appears comforta ble. in no distress. obese head: normocephalic, atraumatic. eyes: perrl, eom intact, conjunctiva and sclera clear, without nystagmus, lids normal. ears: normal canals, grossly normal hearing. nose: no deformity, no discharge, no inflammatio n, no lesions. mouth: oropharynx without deformities or lesions , normal mucosa.. neck: no masses, no thyromegaly, no abnormal cer vical nodes, trachea midline. chest: grossly normal appearance. breast: deferred lungs: clear bilaterally with normal respiratory effort. heart: regular rate and rhythm, normal s1, s2, n o murmurs, no rubs, no gallops, no clicks. abdomen: soft, minimally tender, incisions clean and dry. musculoskeletal: no deformity, no scoliosis note d of thoracic or lumbar spine, joint rom grossly normal, normal gait an d station. extremities: no clubbing, no cyanosis, no edema. neurological: no focal deficits, cranial nerves ii-xii grossly intact, normal sensation, normal coordination, normal m uscle strength, normal tone. pulses: pulses normal in all extremities. rectal: deferred genitourinary: deferred skin: intact without significant lesions, or irene hes. lymph nodes: no significant cervical node adenop athy. no significant axillary node adenopathy. no significant inguin al node adenopathy.no significant node adenopathy. psychiatric: alert and oriented to time, person, place. normal mood and affect, intact judgment and insight. -- data -- medications insulin lispro 0 units subq ac hs nicotine 14 mg topical daily tramadol hcl 50 mg po q6h prn hydralazine hcl 5 mg iv q2h prn dextrose 5%-0.45% saline 1000 ml iv .q24h glucagon 1 mg im asdir prn enoxaparin sodium 40 mg subq daily pravastatin sodium 40 mg po bedtime ipratropium/albuterol sulfate 3 ml neb rtq4h prn acetaminophen 650 mg po q6hr carvedilol 6.25 mg po bid meals ketorolac tromethamine 15 mg iv q6hr dextrose 50%-water 25 ml iv asdir prn ondansetron 4 mg po q6h prn melatonin 3 mg po bedtime prn labs glu bed (07/05/22 07:13) glubed 133 h cbc w/auto diff (07/05/22 02:49) white blood cell 6.4 red blood cell 4.47 l hemoglobin 10.9l l hematocrit 32.7l l mean cell volume 73.2 l mean cell hgb 24.4 l mean cell hgb concentration 33.3 red cell distribution width 16.0 platelet count 197 mean platelet volume 9.1 neutrophil % 69.6 lymphocyte % 19.3 l monocyte % 10.5 h eosinophil % 0.0 basophil % 0.3 neutrophil # 4.43 lymphocyte # 1.23 monocyte # 0.67 eosinophil # 0.00 basophil # 0.02 basic metabolic panel (07/05/22 02:49) sodium 139 potassium 4.0 chloride 110h h carbon dioxide 23 glucose 133h h blood urea nitrogen 11 glomerular filtration rate >=60 max estimate creatinine 0.80 calcium 7.8 l mag (07/05/22 02:49) magnesium 1.4 l glu bed (07/04/22 17:28) glubed 151 h glu bed (07/04/22 16:14) glubed 139 h glu bed (07/04/22 13:47) glubed 146 h signed in patientkeeper by leni tony aprn 07/05/22 at 10:21 cosigned by aris salmeron md on 07/05/22 at 1 7:33 electronically signed by leni tony on 0 07/05/22 at 1733 electronically signed by aris salmeron md on 07/05/22 at 1733 attention *edits and/or addenda must be made in patient ke eper for this note. * * edits and ammendments created in [facility] not [facility] * * in patient keeper or the legal medical record (hpf). * rpt #: [id number] end of report 2022-07-05 [facility] 09:14:00-00:00 [facility] ([facility]) colorectal surgery prog note report#:[id number] report status: signed date:07/05/22 time: 913 patient: cha christianson unit #: [id number] room: [facility] bed: 1 : 54 age: 67 sex: m attend: maria g bhat md adm dt: 07/04/22 author: karmen sun v, md * all edits or amendments must be made on the el ectronic/computer document * general date of surgery: 07/04/22 status post: right colectomy antibiotics: complete subjective patient reports: yes: pain controlled. no: bowel movement, flatus , nausea, vomiting. nursing reports: no: complaints. objective general vs/i o: last documented: result date time pulse ox 95 07/05 711 b/p 132/74 07/05 711 b/p mean 93.5 07/05 711 temp 37.1 07/05 711 pulse 62 07/05 711 resp 14 07/05 711 o2 delivery nasal cannula 07/043 o2 flow rate 2 07/04 2000 24 hour i o ending at 0700: 07/04 1900 07/05 0700 intake total 225.00 1285.00 output total 575 475 balance -350.00 810.00 intake, iv 225.00 825.00 intake, oral 460 output, urine 575 475 patient 104.7 kg weight weight standing scale measurement method patient weight: weight (lb): 230 weight (oz): 13.18 weight (kg): 104.700 physical exam general appearance: alert, awake, oriented wound/incision: location: incisions are clean, dry, and intact. cardiovascular: normal heart sounds, normal s1/s 2, regular rate and rhythm respiratory: aerating well, clear to auscultatio n, equal breath sounds, symmetric expansion abdomen: tenderness (appropriately tender to pal pat), soft, no distention genitourinary - male: urinary catheter extremities: moves all, normal capillary refill, normal temperature neuro/player manager: alert, oriented x 3, cnii-xii intact, normal speech skin: dry, intact, normal color, normal temperat ure current medications medications: active meds + dc'd last 24 hrs enoxaparin sodium (lovenox) 40 mg daily subq magnesium sulfate (magnesium sulfate 2gm/50 ml) 50 ml once one iv acetaminophen (tylenol regular) 650 mg q6hr po pravastatin sodium (pravastatin sodium) 40 mg be dtime po acetaminophen (ofirmev) 100 ml q6hr iv (dc) ketorolac tromethamine (ketorolac tromethamine) 15 mg q6hr iv (dc) ketorolac tromethamine (toradol) 15 mg q6hr iv carvedilol (coreg) 6.25 mg bid meals po insulin human lispro (humalog) 0 units ac hs subq albuterol/ipratropium (duoneb 2.5-0.5mg/3 ml) 3 ml rtq4h prn prn neb dextrose/water (dextrose 50% syr) 25 ml asdir pr n prn iv (ckd) glucagon (glucagon) 1 mg asdir prn prn im hydralazine hcl (apresoline) 5 mg q2h prn prn iv melatonin (melatonin) 3 mg bedtime prn prn po nicotine (nicoderm, habitrol) 14 mg daily topica l ondansetron base (zofran odt) 4 mg q6h prn prn p o tramadol hcl (ultram) 50 mg q6h prn prn po dextrose/sodium chloride (d5%w 0.45%ns) 1,000 ml .q24h iv glycopyrrolate (robinul) 0 .stk-med one .route ( dc) neostigmine methylsulfate (neostigmine methylsul fate) 0 .stk-med one .route (dc) hydromorphone hcl (dilaudid) 0 .stk-med one .rou te (dc) sevoflurane (ultane) 0 .stk-med one .route (dc) acetaminophen (ofirmev) 100 ml .stk-med one iv ( dc) dexamethasone sodium phosphate (decadron) 0 .stk -med one .route (dc) ondansetron hcl (zofran 4 mg/2 ml inj) 0 .stk-me d one .route (dc) ephedrine sulfate (ephedrine) 0 .stk-med one .ro [place] (dc) atropine sulfate (atropine 1mg/10ml) 0.5 mg pacu q5min prn prn iv (dc) diphenhydramine hcl (benadryl inj) 12.5 mg pacu once prn prn iv (dc) epinephrine (racepinephrine u/d) 0.5 ml pacu asd ir prn prn neb (dc) flumazenil (romazicon,mazicon) 0.2 mg pacu asdir prn prn iv (dc) hydralazine hcl (apresoline) 10 mg pacu q10min p rn prn iv (dc) hydromorphone hcl (dilaudid) 0.5 mg pacu q10min prn prn iv (dc) labetalol hcl (trandate, normodyne) 10 mg pacu q 5min prn prn iv (dc) meperidine hcl (demerol) 12.5 mg pacu once prn p rn iv (dc) morphine sulfate (morphine) 2 mg pacu q5min prn prn iv (dc) naloxone hcl (narcan) 0.04 mg pacu q2min prn prn iv (dc) oxycodone hcl (roxicodone,oxyir) 5 mg pacu q4h p rn prn po (dc) promethazine hcl (phenergan) 6.25 mg pacu once p rn prn iv (dc) sodium chloride (sodium chloride 0.9%) 50 ml sodium chloride (sodium chloride 0.9%) 1,000 ml pacu iv fluid iv (dc) ertapenem (invanz) 1 gm preop iv (dc) sodium chloride (sodium chloride 0.9%) 50 ml heparin sodium (porcine) (heparin sodium) 5,000 unit once iv (dc) sodium chloride (sodium chloride 0.9%) 1,000 ml asdir iv (dc) results findings/data: laboratory tests 07/05/22 0249: [embedded image not available] laboratory tests 07/04 07/04 07/04 07/05 1347 1614 1728 0249 chemistry sodium (136 - 145 mmol/l) 139 potassium (3.5 - 5.1 mmol/l) 4.0 chloride (98 - 107 mmol/l) 110 h carbon dioxide (20 - 31 mmol/l) 23 bun (9 - 23 mg/dl) 11 creatinine (0.70 - 1.30 mg/dl) 0.80 glomerular filtr rate (>60 ml/min) >=60 max est imate glucose (74 - 106 mg/dl) 133 h poc glucose (70 - 105 mg/dl) 146 h 139 h 151 h calcium (8.7 - 10.4 mg/dl) 7.8 l magnesium (1.6 - 2.6 mg/dl) 1.4 l 07/05 0713 chemistry poc glucose (70 - 105 mg/dl) 133 h laboratory tests 07/05 0249 hematology wbc (4.8 - 10.8 x10 3/ul) 6.4 rbc (4.70 - 6.10 x10 6/ul) 4.47 l hgb (14.0 - 18.0 g/dl) 10.9 l hct (42.0 - 52.0 %) 32.7 l mcv (80.0 - 94.0 fl) 73.2 l mch (27 - 31 pg) 24.4 l mchc (33 - 36.5 g/dl) 33.3 rdw (12.9 - 16.9 %) 16.0 plt count (150 - 440 x10 3/ul) 197 mpv (8.9 - 12.4 fl) 9.1 neut % (auto) (42.2 - 75.2 %) 69.6 lymph % (auto) (20.5 - 51.1 %) 19.3 l mono % (auto) (1.7 - 9.3 %) 10.5 h eos % (auto) (0.0 - 7.0 %) 0.0 baso % (auto) (0 - 2.5 %) 0.3 neut # (auto) (1.80 - 7.70 x10 3/ul) 4.43 lymph # (auto) (1.00 - 4.80 x10 3/ul) 1.23 mono # (auto) (0.00 - 0.80 x10 3/ul) 0.67 eos # (auto) (0.00 - 0.45 x10 3/ul) 0.00 baso # (auto) (0.0 - 0.20 x10 3/ul) 0.02 diagnosis, assessment plan free text a p: 67 yo male pod1 s/p right colectomy, recovering appropriately. plan for pharmacologic dvt prophylaxis today (lovenox 40 mg sq qd) and clear liquids. diet can be advanced to soft when patient passes flatus. d/c hardin today, lower fluids to 40 cc/hr. likely discharge tomorrow af ternoon. electronically signed by karmen sun v, md on at 0919 rpt #:[id number] end of report 2022-07-04 [facility] 14:38:00-00:00 [facility] ([facility] med order sheet report #: [id number] report status: signed date: 07/04/22 time: 1438 patient: cha christianson unit #: [id number] room #: [facility] bed: 09 : 54 age: 67 sex: m attend: maria g bhat md adm dt: 07/04/22 author: leni tony aprn attention *edits and/or addenda must be made in patient [facility] for this note. * * edits and ammendments created in [employer] are not visible * * in patient keeper or the legal medical record (hpf). * admission medication reconciliation -- continued / changed home medications -- home: carvedilol tab (coreg tab) 6.25 mg po bid meals hosp: carvedilol tab (coreg tab) 6.25 mg po bid meals - hold for sbp < 110 mmhg or hr <60 bpm home: pravastatin tab (pravachol tab) 40 mg po d aily hosp: pravastatin tab (pravachol tab) 40 mg po b edtime -- stopped home medications -- home: glimepiride (generic amaryl) tab (glimepir prudence) 2 mg po c bk home: metformin tab (glucophage tab) 1000 mg po bid home: warfarin tab (coumadin tab) 10 mg po daily electronically signed in patientkeeper b y leni tony on 07/04/22 14:37 electronically signed by leni tony on 0 07/04/22 at 1438 attention *edits and/or addenda must be made in patient [facility] for this note. * * edits and ammendments created in [facility] are not visible * * in patient keeper or the legal medical record ([facility]). * rpt #: [id number] end of report 2022-07-04 [facility] 14:16:00-00:00 [facility] ([facility]) internal med. consultation report #: [id number] report status: signed date: 07/04/22 time: 1416 patient: cha christianson unit #: [id number] room #: [facility] bed: 09 : 54 age: 67 sex: m attend: maria g bhat md adm dt: 07/04/22 author: leni tony aprn attention *edits and/or addenda must be made in patient ke eper for this note. * * edits and ammendments created in [facility] are not visible * * in patient keeper or the legal medical record ([facility]). * -- co-signature -- comments: thank you for letting us participate in the care of your patient post operatively. patient seen and examined plan of care discussed with patient, all questions answered to his satisfaction agree with the findings as detailed by leni sarabia aprn plans for the acute medical problems are enumera lanny below total time spent coordinating care > 75 mins signed in patientkeeper by aris salmeron md 07/04/22 at 16:49 -- assessment and plan -- problems: 1: cecum mass a/p: s/p robotic assisted laparoscopic right col ectomy continue postoperative care per dr. washington pain control - scheduled iv tylenol and iv torad ol. tramadol prn clear liquid diet continue iv hydration until tolerating oral inta ke well. 2: hypertension a/p: continue home carvedilol 6.25 mg bid, felod ipine 10 mg daily hydralazine 5 mg q2h iv prn sbp > 160 mmhg 3: hyperlipidemia a/p: continue pravastatin 40 mg hs 4: diabetes mellitus a/p: hold home glimepiride 2 mg daily and metfor min 1000 mg bid for now. accuchecks achs ssi 5: tobacco use a/p: cessation advised nicotine patch 6: history of pulmonary embolism a/p: provoked. 10 years ago resume warfarin when ok with dr. washington 7: dvt prophylaxis a/p: scds/lovenox for now -- history -- consult requested by: isabela washington md date/time at bedside: 2022-07-04 14:17 reason for consult: postoperative medical management chief complaint: cecal mass hpi: patient is a 67 year old man with history of pro voked pulmonary embolism 10 years ago on warfarin, smoker, diabetes, hyperte nsion, hyperlipidemia, diverticulosis, and cecal mass who underwent kaya otic assisted laparoscopic right colectomy by dr. washington. patient t olerated procedure well. we were asked by dr. washington to see the patient postoperatively to assist with medical management. past medical history: provoked pulmonary embolism 10 years ago on warf selin, smoker, obesity, diabetes, hypertension, hyperlipidemia, divertic ulosis, cecal mass past surgical history: eye surgery, hip replacement, prostate radiation family history: heart disease, mi, diabetes -social history- marital status: partnered additional social history: smoker 1/2 ppd. denies alcohol or illicit drug u se. -- allergies/home meds -- allergies: clopidogrel (severe - allergy) home medications: carvedilol tab (coreg tab) 6.25 mg po bid meals glimepiride (generic amaryl) tab (glimepiride) 2 mg po c bk metformin tab (glucophage tab) 1000 mg po bid pravastatin tab (pravachol tab) 40 mg po daily warfarin tab (coumadin tab) 10 mg po daily -- subjective -- -review of systems- general: negative for fever, malaise, fatigue. eyes: negative for blurry vision. no diplopia. ears/nose/throat: negative for sore throat. no o talgia. no rhinorrhea. respiratory: negative for dyspnea or wheeze. no cough. cardiovascular: negative for chest pain or palpi tations. no extremity swelling. gastrointestinal: positive for abdominal incisio n pain. no nausea. no emesis. no diarrhea. genitourinary: negative for dysuria, frequency, or urgency. no gross hematuria. musculoskeletal: negative for joint stiffness, p ain, or arthralgias. skin: negative for rashes. no pruritus. neurological: negative for headache. no vertigo. denies paresthesias. psychiatric: negative for specific complaints. endocrine: negative for cold intolerance, heat i ntolerance, polyphagia, polydipsia, polyuria, weight change , fatigue. hematalogic / lymphoreticular: negative for exce ssive bleeding, unusual masses. allergic / immunologic: negative for heat/cold i ntolerance, polydipsia, or polyuria. -- objective -- vitals (07/03 14:16 - 07/04 14:16): temperature c: 36.5 temperature source: oral pulse rate 52 respiratory rate: 16 bp: 154/87 -exam- general: alert and cooperative, appears comforta ble. in no distress. obese head: normocephalic, atraumatic. eyes: perrl, eom intact, conjunctiva and sclera clear, without nystagmus, lids normal. ears: normal canals, grossly normal hearing. nose: no deformity, no discharge, no inflammatio n, no lesions. mouth: oropharynx without deformities or lesions , normal mucosa.. neck: no masses, no thyromegaly, no abnormal cer vical nodes, trachea midline. chest: grossly normal appearance. breast: deferred lungs: clear bilaterally with normal respiratory effort. heart: regular rate and rhythm, normal s1, s2, n o murmurs, no rubs, no gallops, no clicks. abdomen: soft, appropriately tender, incisions c lean and dry. musculoskeletal: no deformity, no scoliosis note d of thoracic or lumbar spine, joint rom grossly normal extremities: no clubbing, no cyanosis, no edema. neurological: no focal deficits, cranial nerves ii-xii grossly intact, normal sensation, normal coordination, normal m uscle strength, normal tone. pulses: pulses normal in all extremities. rectal: deferred genitourinary: hardin catheter with clear yellow urine. skin: intact without significant lesions, or irene hes. lymph nodes: no significant cervical node adenop athy. no significant axillary node adenopathy. no significant inguin al node adenopathy.no significant node adenopathy. psychiatric: alert and oriented to time, person, place. normal mood and affect, intact judgment and insight. -- data -- medications oxycodone hcl 5 mg po pacu q4h prn atropine sulfate 0.5 mg iv pacu q5min prn epinephrine 2.25% 0.5 ml neb pacu asdir prn morphine sulfate 2 mg iv pacu q5min prn labetalol hcl 10 mg iv pacu q5min prn meperidine hcl 12.5 mg iv pacu once prn flumazenil 0.2 mg iv pacu asdir prn hydromorphone hcl 0.5 mg iv pacu q10min prn naloxone hcl 0.04 mg iv pacu q2min prn sodium chloride 0.9% 1000 ml iv pacu iv fluid ketorolac tromethamine 15 mg iv q6hr diphenhydramine hcl 12.5 mg iv pacu once prn tramadol hcl 50 mg po q6h prn hydralazine hcl 10 mg iv pacu q10min prn ertapenem sodium with/in sodium chloride 50 ml b ag 1 gm iv preop dextrose 5%-0.45% saline 1000 ml iv .[id number] heparin sodium,porcine 5000 unit iv once enoxaparin sodium 40 mg subq daily acetaminophen 650 mg po q6hr acetaminophen 1000 mg iv q6hr sodium chloride 0.9% 1000 ml iv asdir ondansetron 4 mg po q6h prn promethazine hcl with/in sodium chloride 50 ml b ag 6.25 mg iv pacu once prn labs glu bed (07/04/22 13:47) glubed 146 h ptt (07/04/22 07:35) thromboplastin time partial 20.7 l prothrombin time (07/04/22 07:35) prothrombin time patient 11.6 international normal ratio 1.02 glu bed (07/04/22 07:17) glubed 83 signed in patientkeeper by leni tony aprn 07/04/22 at 14:41 cosigned by aris salmeron md on 07/04/22 at 1 6:49 electronically signed by leni tony on 0 07/04/22 at 1649 electronically signed by aris salmeron md on 07/04/22 at 1649 attention *edits and/or addenda must be made in patient ke eper for this note. * * edits and ammendments created in [employer] are not visible * * in patient keeper or the legal medical record (hpf). * [facility] #: [id number] end of report 2022-07-04 [id number] [facility] 14:12:00-00:00 [address] [place] [address] patient name: cha christianson admit date: 07/04/22 account no: [id number] room no: [id number] age: 67 report type: operative report sex: m admitting physician:maria g bhat md attending physician:maria g bhat md operation date: 07/04/2022 colorectal surgeon: isabela washington md surgical aide: adair barros md. no qu alified instructor adjunct surgical technician was available to assist in this procedure; therefore, dr. barros was present for the duration and necessary to complete the procedure in a safe and minimally invasive fashion. additional assistants: maria g bhat md. dr. bhat w as present for mayer portions of the procedure including construction of the i ntracorporeal anastomosis. preoperative diagnosis: cecal mass. postoperative diagnosis: cecal mass. procedures performed: robotic-assisted laparosco pic right colectomy with oncologic lymph node dissection and intracorpore al isoperistaltic ileocolic anastomosis. anesthesia type: general endotracheal. estimated blood loss: 50 ml. complications: none immediately apparent. specimens: right colon and lymph nodes. indications for procedure: this is a 67-year-old man with multiple medical comorbidities including buffer [place] anticoagulation and current smoking, presenting for consultation regarding recent endoscopic fin dings of a right colon mass. preoperative workup revealed no evidence of locally advanced invasion or distant metastasis. he was counseled on the risks, benef its, and alternatives of surgery. we discussed the risk of bleeding, infe ction, hernia formation, and need for additional surgery. additionally, given his multiple medical comorbidities, chiefly his chronic anticoagulati on and smoking status, we did discuss his elevated risk of intra-abdominal com plications including anastomotic leak, which may require additional s urgery and diverting ostomy. he understood and wished to proceed with surgery . findings: laparoscopic access through th e peritoneal cavity was obtained using optiview technique in the left upper quadrant. l aparoscopic surveillance revealed a tattoo located within the proximal as cending colon. there were patient name: cha christianson accoun t #: [id number] adhesions of the omentum along the ascen ding colon associated with the tattoo. we performed a medial to lateral dissection with a high ligation of the ileocolic pedicle and oncolo gic right colon lymph node dissection. we performed an intracorporeal ileocolic anastomosis using a single 60 mm blue load for the common channel and closure using a 2-layer runni ng 3-0 v-loc suture. extraction was performed via a pfannenstiel inci brian. prior to fashioning the anastomosis, icg dye was injected intrav enously and he was noted to have brisk and bright fluorescein of both the small bowel a nd colon for planned anastomosis. details of the operation: after informed consent was obtained, the patient was taken to the operating room and placed supine on the operating table. anesthesia was induced without complication. we then repositioned in modified lithotomy using deshawn strips and all pressure po ints were padded. a hardin catheter was placed by the or staff. next, the a bdomen was prepped and draped in standard sterile fashion. a time-out was perf ormed. we obtained access to the peritoneal cavity using an optiview techniqu e in the left upper quadrant. laparoscopic surveillance revealed some adhesion s as noted above. we appreciated no evidence of peritoneal or metasta sis to the hepatic surface. next, we placed additional robotic trocars in th e left lower quadrant, right lower quadrant and suprapubic locations. the sup rapubic trocar was exchanged for a 12-mm robotic trocar. the robot wa s docked. we began a medial to lateral dissection. we first incised the peritoneum over lying the ileocolic pedicle. we then mobilized the ascending colon and transv erse colon mesentery from its retroperitoneal attachments in a medial to later al fashion. we identified the duodenum and freed it from the underside of the transverse colon mesentery. we carried this beyond the transverse colon and ent ered the lesser sac. the duodenum was completely freed from the ileocolic pedicle. next, we turned our attention laterally. the terminal ileum was mobi lized. the cecum was freed of its lateral attachments. we then divided the lat eral attachments using the vessel sealer. we carried this around the hepati c flexure and the transverse colon was freed by dividing the lesser omentum. next, we turned our attention to the anterior surface of the transvers e colon. the greater omentum was freed from the anterior surface of the transverse colo n. given the dense adhesions associated with the ascending colon tattoo, we d id perform a partial omentectomy, leaving this attached to th e ascending colon, which was extracted at the conclusion of the procedure. we ensured a dequate vascularity of the remaining omentum during icg dye testing. at thi s point, we performed a high ligation of the ileocolic pe dicle using a single firing of the 60 mm white load stapler. prior to firing the stapler, ly mph nodes were swept off of the origin of the vessel and into the specimen. next, we di vided the mesentery of the transverse colon up to our intended colonic geronimo section site in the mid transverse colon. we divided the mesentery to th e distal ileum. next, we divided the colon using a single firing of the 6 0 mm blue load stapler. we divided the small bowel in a similar fashion jus t proximal to the ileocecal valve using a 60 mm blue load stapler. the speci men was fully freed of its retroperitoneal attachments and placed in the le ft upper quadrant. there was bleeding noted from the mesentery of the remaining transverse colon, which was controlled using 2 interrupted 3-0 vicryl suture s. next, we performed our icg dye testing, injecting icg d ye intravenously and evaluating the colon and small bowel, which were noted to fluoresce amber skly and brightly. next, the colon and small bowel were found to lie in close appositio n. we performed colotomy and enterotomies using the robot ic scissors. we created a common channel using a 60 mm blue load stapler. this was noted to be hemos tatic. next, we closed the patient name: cha christianson accoun t #: [id number] common channel using a 9 inc h 3-0 v-loc suture. this was performed in a running fashion, first running poste riorly to anteriorly, full-thickness, then limiting the closure in an anterior to posterior location . final inspection revealed a hemostatic anastomosis without twisting or tensi on. next, the abdomen was desufflated. we created a low transverse incisio n at the site of our 12-mm trocar. this was carried down to the anterior fa scia. the fascia was divided using electrocautery, the muscle split bluntly, and the posterior peritoneum divided using electrocautery. a small roxie wou nd protector was deployed within the wound. we extracted the specimen. nex t, the peritoneum was closed using 2-0 vicryl suture. we closed the fascia in a running fashion using #1 pds suture. finally, the subcutaneous tissue was natali pproximated using 3-0 vicryl suture and all skin incisions were closed using 4-0 monocryl suture. we did reinsufflate the abdomen and ensured no entrapment of bowel on the underside of the pfannenstiel closure prior to closing our sk in incisions. at this point, the patient was returned to a supine position. he was awakened and taken to the postanesthesia care unit in stable condition. dictated by: isabela washington md wt: op:mitch/latrell. dd: 07/04/2022 14:12:12 dt: 07/04/2022 15:53:30 conf#: [id number]/did#: [id number] authenticated and edited by isabela washington md o n 07/05/22 7:48:24 am electronically signed by isabela washington md on 0 07/05/22 at 0751 patient name: cha christianson accoun t #: [id number]
--- NOTE | 2023-06-05 18:23 | RAD REPORT ---
EXAM DESCRIPTION: Jena Single View06/05/2023 5:57 pm CLINICAL HISTORY: Chest pain COMPARISON: 2021 FINDINGS: Areas of scarring within the lung bases. The lungs appear clear of acute infiltrate. The heart is normal size IMPRESSION: No acute abnormalities displayed
--- NOTE | 2023-06-05 18:53 | ER ---
[facility] Name: Deena Cintron Age: 68 yrs Sex: Male : 1955 Arrival Date: 06/05/2023 Time: 17:10 Bed DIS3 Private MD: Diagnosis: Pain in right shoulder Presentation: 06/05 17:26 Chief complaint: Patient states: right shoulder pain. Pt was seen at [facility] this cm10 weekend and was told that he had arthritis and put in a sling and told to follow-up with ortho. Pt states that he saw his PCP today and was told to follow up with ortho but no appointment is available for a few more days so he came to the ED because the pain isn't improving. Coronavirus screen: Vaccine status: Patient reports receiving the 2nd dose of the covid vaccine. Ebola Screen: No symptoms or risks identified at this time. Initial Sepsis Screen: Does the patient meet any 2 criteria? No. Patient's initial sepsis screen is negative. Does the patient have a suspected source of infection? No. Patient's initial sepsis screen is negative. Risk Assessment: Do you want to hurt yourself or someone else? Patient reports no desire to harm self or others. Onset of symptoms was June 05, 2023. 17:26 Method Of Arrival: Ambulatory cm10 17:26 Acuity: ALLEGRA 4 cm10 Historical: - Allergies: 17:29 Tramadol HCl (Hives); cm10 17:29 Plavix (Hives); cm10 - PMHx: 17:29 Diabetes mellitus; Hypertensive disorder; high cholesterol; arrhythmia; prostate cancer;cm10 - PSHx: 17:29 hip replacement- right; cm10 17:31 Colon resection; cm10 - Immunization history:: Adult Immunizations unknown. - Social history:: Smoking status: Patient reports the use of cigarette tobacco products, denies chronic smoking, but will smoke occasionally. - Family history:: not pertinent. Screenin:28 [facility] ED Fall Risk Assessment (Adult) History of falling in the last 3 months, vc1 including since admission No falls in past 3 months (0 pts) Confusion or Disorientation No (0 pts) Intoxicated or Sedated No (0 pts) Impaired Gait No (0 pts) Mobility Assist Device Used No (0 pt) Altered Elimination No (0 pt) Score/Fall Risk Level 0 - 2 = Low Risk Oriented to surroundings, Maintained a safe environment, Educated pt \T\ family on fall prevention, incl call for assistance when getting out of bed. Abuse screen: Denies threats or abuse. Nutritional screening: No deficits noted. Tuberculosis screening: No symptoms or risk factors identified. Vital Signs: 17:26 BP 137 / 79; Pulse 57; Resp 18; Temp 97.5; Pulse Ox 100% ; Weight 99.79 kg; Height 5 cm10 ft. 9 in. ; Pain 10/10; 17:26 Body Mass Index 32.49 (99.79 kg, 175.26 cm) cm10 17:26 Pain Scale: Adult cm10 ED Course: 17:12 Patient arrived in ED. rg4 17:29 Triage completed. cm10 17:29 Hernandez Beckham MD is Attending Physician. [facility] 17:32 Arm band placed on Patient placed in an exam room, on a stretcher. cm10 17:59 XRAY Chest (1 view) In Process Unspecified. EDND 18:52 Stefano Mccoy MD is Referral Physician. [facility] 19:29 No provider procedures requiring assistance completed. Patient did not have IV access vc1 during this emergency room visit. Administered Medications: 19:28 Drug: Ibuprofen PO 400 mg Route: PO; vc1 19:28 Follow up: Response: Medication administered at discharge. vc1 19:28 Drug: predniSONE PO 60 mg Route: PO; vc1 19:28 Follow up: Response: Medication administered at discharge. vc1 Medication: 19:29 VIS not applicable for this client. vc1 Outcome: 18:52 Discharge ordered by . [facility] 19:29 Discharged to home ambulatory. vc1 19:29 Condition: good 19:29 Discharge instructions given to patient, Instructed on discharge instructions, follow up and referral plans. medication usage, Demonstrated understanding of instructions, follow-up care, medications, Prescriptions given X 3. 19:29 Patient left the ED. vc1 Signatures: Dispatcher [employer] EDND Hernandez Beckham MD MD cha Garcia, Rubi rg4 Marlin Burger RN RN vc1 Marva Bowden RN RN cm10 Corrections: (The following items were deleted from the chart) 17:32 17:29 Allergies: No Known Allergies; cm10 cm10
--- NOTE | 2023-06-05 18:53 | EDPHYS ---
Physician Documentation [facility] Name: Deena Cintron Age: 68 yrs Sex: Male : 1955 Arrival Date: 06/05/2023 Time: 17:10 Bed DIS3 Private MD: ED Physician Hernandez Beckham HPI: 06/05 18:50 This 68 yrs old Black Male presents to ER via Ambulatory with complaints of Arm Pain, crystal Shoulder Pain. 18:50 The patient or guardian complains of decreased range of motion. The complaints affect crystal the anterior aspect of right shoulder and posterior aspect of right shoulder. Context: The problem was sustained at an unknown location. Onset: The symptoms/episode began/occurred 3 day(s) ago. Treatment prior to arrival includes: no previous treatment. Modifying factors: The symptoms are alleviated by remaining still, the symptoms are aggravated by movement. Severity of symptoms: At their worst the symptoms were moderate, in the emergency department the symptoms are unchanged. The patient has not experienced similar symptoms in the past. Historical: - Allergies: 17:29 Tramadol HCl (Hives); cm10 17:29 Plavix (Hives); cm10 - PMHx: 17:29 Diabetes mellitus; Hypertensive disorder; high cholesterol; arrhythmia; prostate cancer;cm10 - PSHx: 17:29 hip replacement- right; cm10 17:31 Colon resection; cm10 - Immunization history:: Adult Immunizations unknown. - Social history:: Smoking status: Patient reports the use of cigarette tobacco products, denies chronic smoking, but will smoke occasionally. - Family history:: not pertinent. ROS: 18:50 Constitutional: Negative for fever, chills, and weight loss, Eyes: Negative for injury, crystal pain, redness, and discharge, ENT: Negative for injury, pain, and discharge, Neck: Negative for injury, pain, and swelling, Cardiovascular: Negative for chest pain, palpitations, and edema, Respiratory: Negative for shortness of breath, cough, wheezing, and pleuritic chest pain, Abdomen/GI: Negative for abdominal pain, nausea, vomiting, diarrhea, and constipation, Back: Negative for injury and pain, : Negative for injury, bleeding, discharge, and swelling, Skin: Negative for injury, rash, and discoloration, Neuro: Negative for headache, weakness, numbness, tingling, and seizure, Psych: Negative for depression, anxiety, suicide ideation, homicidal ideation, and hallucinations, Allergy/Immunology: Negative for hives, rash, and allergies, Endocrine: Negative for neck swelling, polydipsia, polyuria, polyphagia, and marked weight changes, Hematologic/Lymphatic: Negative for swollen nodes, abnormal bleeding, and unusual bruising. 18:50 MS/extremity: Positive for decreased range of motion, of the anterior aspect of right shoulder and posterior aspect of right shoulder. Exam: 18:50 Constitutional: This is a well developed, well nourished patient who is awake, alert, crystal and in no acute distress. Head/Face: Normocephalic, atraumatic. Eyes: Pupils equal round and reactive to light, extra-ocular motions intact. Lids and lashes normal. Conjunctiva and sclera are non-icteric and not injected. Cornea within normal limits. Periorbital areas with no swelling, redness, or edema. ENT: Nares patent. No nasal discharge, no septal abnormalities noted. Tympanic membranes are normal and external auditory canals are clear. Oropharynx with no redness, swelling, or masses, exudates, or evidence of obstruction, uvula midline. Mucous membranes moist. Neck: Trachea midline, no thyromegaly or masses palpated, and no cervical lymphadenopathy. Supple, full range of motion without nuchal rigidity, or vertebral point tenderness. No Meningismus. Chest/axilla: Normal chest wall appearance and motion. Nontender with no deformity. No lesions are appreciated. Cardiovascular: Regular rate and rhythm with a normal S1 and S2. No gallops, murmurs, or rubs. Normal PMI, no JVD. No pulse deficits. Respiratory: Lungs have equal breath sounds bilaterally, clear to auscultation and percussion. No rales, rhonchi or wheezes noted. No increased work of breathing, no retractions or nasal flaring. Abdomen/GI: Soft, non-tender, with normal bowel sounds. No distension or tympany. No guarding or rebound. No evidence of tenderness throughout. Back: No spinal tenderness. No costovertebral tenderness. Full range of motion. Skin: Warm, dry with normal turgor. Normal color with no rashes, no lesions, and no evidence of cellulitis. Neuro: Awake and alert, GCS 15, oriented to person, place, time, and situation. Cranial nerves II-XII grossly intact. Motor strength 5/5 in all extremities. Sensory grossly intact. Cerebellar exam normal. Normal gait. Psych: Awake, alert, with orientation to person, place and time. Behavior, mood, and affect are within normal limits. 18:50 Musculoskeletal/extremity: Extremities: grossly normal except: noted in the anterior aspect of right shoulder and posterior aspect of right shoulder: decreased ROM, pain. 19:02 ECG was reviewed by the Attending Physician. [facility] Vital Signs: 17:26 BP 137 / 79; Pulse 57; Resp 18; Temp 97.5; Pulse Ox 100% ; Weight 99.79 kg; Height 5 cm10 ft. 9 in. ; Pain 10/10; 17:26 Body Mass Index 32.49 (99.79 kg, 175.26 cm) cm10 17:26 Pain Scale: Adult cm10 MDM: 17:29 Patient medically screened. [facility] 19:01 Differential diagnosis: contusion, abrasion, tendonitis. Data reviewed: vital signs, [facility] nurses notes, EKG, radiologic studies, plain films. Consideration of Admission/Observation Escalation of care including admission/observation considered. I considered the following discharge prescriptions or medication management in the emergency department Medications were administered in the Emergency Department. See MAR. Independent interpretation of the following test(s) in the Emergency Department EKG: See my EKG interpretation above. Test considered but Not performed: Labs: NO LABS. Care significantly affected by the following chronic conditions: Diabetes, Hypertension, HIGH CHOLESTEROL. Counseling: I had a detailed discussion with the patient and/or guardian regarding: the historical points, exam findings, and any diagnostic results supporting the discharge/admit diagnosis, radiology results, the need for outpatient follow up, for definitive care, a family practitioner, a orthopedic surgeon. 06/05 17:30 Order name: XRAY Chest (1 view); Complete Time: 18:48 [facility] 06/05 17:30 Order name: EKG; Complete Time: 17:31 [facility] 06/05 17:30 Order name: O2 Sat Monitoring; Complete Time: 19:21 [facility] EC:02 Rate is 84 beats/min. Rhythm is regular. QRS [place] is Normal. NC interval is normal. QRS crystal interval is normal. QT interval is normal. No Q waves. T waves are Normal. No ST changes noted. Clinical impression: NSR w/ Non-specific ST/T Changes and No evidence of ischemia. Interpreted by me. Reviewed by me. Administered Medications: 19:28 Drug: Ibuprofen PO 400 mg Route: PO; vc1 19:28 Follow up: Response: Medication administered at discharge. vc1 19:28 Drug: predniSONE PO 60 mg Route: PO; vc1 19:28 Follow up: Response: Medication administered at discharge. vc1 Disposition Summary: 06/05/23 18:52 Discharge Ordered Location: Home crystal Problem: new crystal Symptoms: have improved crystal Condition: Stable crystal Diagnosis - Pain in right shoulder crystal Followup: crystal - With: Private Physician - When: 2 - 3 days - Reason: Recheck today's complaints, Continuance of care, Re-evaluation by your physician Followup: crystal - With: Stefano Mccoy MD - When: 2 - 3 days - Reason: Recheck today's complaints, Continuance of care, Re-evaluation by your physician Discharge Instructions: - Discharge Summary Sheet crystal - Joint Pain crystal - Musculoskeletal Pain crystal - Shoulder Pain crystal - Shoulder Pain, [id number] crystal - Arthritis, [id number] [facility] Forms: - Medication Reconciliation Form [facility] - Thank You Letter crystal - Antibiotic Education crystal - Prescription Opioid Use crystal - Patient Portal Instructions [facility] Prescriptions: - acetaminophen-codeine 300-15 mg Oral tablet - take 2 tablet by ORAL route every 6 hours as needed for pain; 20 tablet; [facility] Refills: 0, Product Selection Permitted - Ibuprofen 600 mg Oral Tablet - take 1 tablet by ORAL route every 6 hours As needed take with food; 21 tablet; [facility] Refills: 0, Product Selection Permitted - Medrol (Edward) 4 mg Oral Tablets, Dose Pack - take 1 tablet by ORAL route as directed - follow package instructions; 1 crystal packet; Refills: 0, Product Selection Permitted Signatures: Dispatcher [employer] Hernandez Roldan MD MD cha Calcote, Vanessa RN RN vc1 Marva Bowden RN RN cm10 Corrections: (The following items were deleted from the chart) 17:32 17:29 Allergies: No Known Allergies; cm10 cm10 18:48 17:30 Cardiac monitoring ordered. [facility] 18:48 17:30 EKG - Nurse/Tech ordered. [facility] 18:48 17:30 Labs collected and sent ordered. [facility] 18:48 17:30 Oxygen Per Protocol ordered. crystal crystal 19:21 17:30 IV Saline Lock ordered. crystal vc1
[2023-06-05] MEDS ORDERED: IBUPROFEN 400 MG TAB ONE (19:32)
[2023-06-05] MEDS ORDERED: predniSONE 20 MG TAB ONE (19:32)
[2023-06-05 19:34] VITALS: BP 137/79; TEMP 97.5; O2SAT 100
--- NOTE | 2023-06-06 17:34 | EKG ---
Test Date: 2023-06-05 Test Time: 18:58:36 Senior Pricing Analyst: MARCELO MEASUREMENT RESULTS: Intervals: Rate: 84 OR: 176 QRSD: 78 QT: 360 QTc: 425 [place]: P: 50 OR: 176 QRS: 23 T: 1 INTERPRETIVE STATEMENTS: Sinus rhythm with frequent premature ventricular complexes Possible Anterior infarct, age undetermined Abnormal ECG Compared to ECG 11/03/2011 15:39:16 Ventricular premature complex(es) now present Myocardial infarct finding still present Electronically Signed On 06-06-23 17:31:36 CDT by Michael Diaz
== END 2023-06-05 19:29 | disposition home or self-care (01) ==
LOC: ER 17:10
DX: M25.511 Pain in right shoulder (principal); F17.210 Nicotine dependence, cigarettes, uncomplicated; Z88.5 Allergy status to narcotic agent; Z88.8 Allergy status to other drugs, medicaments and biological substances
CPT/HCPCS: 71045; J7512; 93005